=== PATIENT | female | born 1985 | race Caucasian/White ===

== ENCOUNTER 2024-09-29 20:07 | Emergency (ER) | payer OTHER, SELFPAY ==
[2024-09-29 20:07] VITALS: BMI 31.7
[2024-09-29 20:09] VITALS: BP 162/103
[2024-09-29 20:35] LABS: Hematocrit 41.5 % (37.0-47.0); Hemoglobin 14.2 g/dL (12.0-16.0); Mean Corp Hgb Conc. 34.2 g/dL (33.0-37.0); Mean Corpuscular Volume 91.8 fL (81.0-99.0); Nucleated Red Blood Cells % 0 %; Platelet Count 307 10^3/uL (130-400); Red Cell Dist. Width 12.1 % (11.5-14.5)
[2024-09-29 20:57] LABS: HCG, Serum Qualitative Screen Negative
[2024-09-29 21:01] LABS: ALT (SGPT) 25 U/L (0-35); AST (SGOT) 29 U/L (14-36); Albumin 4.7 g/dl (3.5-5.0); Alkaline Phosphatase 63 U/L (38-126); Blood Urea Nitrogen 7 mg/dl (7-17); Calcium 9.7 mg/dl (8.4-10.2); Carbon Dioxide 26 mmol/L (22-30); Chloride 104 mmol/L (98-107); Glucose 85 mg/dl (70-99); Potassium 4.5 mmol/L (3.5-5.1); Sodium 137 mmol/L (135-145); Total Protein 7.3 g/dl (6.3-8.2); eGFR > 60.00
[2024-09-29 23:14] VITALS: BP 139/84
[2024-09-29 23:18] VITALS: BP 139/84
--- NOTE | 2024-09-30 00:23 | ED.GENMED ---
History of Present Illness
<Viridiana Parks MD, Resident - Last Filed: 09/30/24 22:42>
General
Chief Complaint: Extremity Pain (non-traumatic)
Source: patient
Exam Limitations: none
Time Seen by Provider: 09/29/24 23:11
Nursing documentation reviewed up to this point in time: agreed with
History of Present Illness
History of Present Illness:
Ms. Conrad Matute is a 36-year-old female [facility] notable for a cat bite was presenting with increased pain at the left PIP joint of the index finger 1 month after a another cat bite there. She also reports increased bony growths at that joint.
Both cat bites at that joint or by her cat, which is fully vaccinated and exhibited no symptoms of rabies. 1 month ago after the cat bite, her left index finger was swollen and erythematous. She self medicated with amoxicillin 500 mg twice daily
for 5 to 7 days. Her finger healed. Her cat bit her at the same location before, a while ago.
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 Her last dose of tetanus vaccine was 8 to 10 years ago, she requests a tetanus booster.
She also 'broke out' diffusely on her neck and bilateral arms with bumps resembling acne. This has occurred before commonly with cosmetics and infections.
She denies lymphadenopathy, upper respiratory symptoms, fevers/chills, nausea/vomiting, and diarrhea.
Review of Systems
<Viridiana Parks MD, Resident - Last Filed: 09/30/24 22:42>
Review of Systems
All Other Systems: ROS reviewed and negative except as documented in HPI and ROS
Phy Exam
<Viridiana Parks MD, Resident - Last Filed: 09/30/24 22:42>
Physical Exam
Physical Exam:
Extremities: Left index finger PIP joint larger than right index finger PIP joint with bony nodes, full range of motion, slight tenderness to palpation
Heart regular rate and rhythm
Lungs clear to auscultation bilaterally
GI: Nontender to palpation, normal bowel sounds
Course
<Viridiana Parks MD, Resident - Last Filed: 09/30/24 22:42>
Orders/Labs/Results
Orders:
Orders
09/29/24 20:13
Test Result ONCE
09/29/24 20:18
CMP [Comprehensive Metabolic Panel] Urgent
Complete Blood Count/With Diff Urgent
HCG, Serum Qualitative Screen Urgent
09/30/24 00:13
CR Finger(s)/thumb Min 2 Vw Lt Urgent
Comment:
Reason For Exam: Cat bite 1 month ago at proximal joint; pain
09/30/24 00:22
Tetanus/Diphth/Acelpertussis [Adacel] 0.5 ml IM .ONCE ONE
Abnormal Lab Results
09/29/24
20:18
MCH 31.4 H pg
(27.0-31.0)
Absolute Neuts (auto) 6.6 H 10^3/uL
(1.4-6.5)
Absolute Monos (auto) 0.7 H 10^3/uL
(0.1-0.6)
09/29/24 20:18
09/29/24 20:18
Vital Signs
Initial and Last Documented VS:
Initial Vital Signs
Temp Pulse Resp BP Pulse Ox
98.6 F 114 18 162/103 97
09/29/24 20:09 09/29/24 20:09 09/29/24 20:09 09/29/24 20:09 09/29/24 20:09
Last Documented Vital Signs
Temp Pulse Resp BP Pulse Ox
98.6 F 68 18 140/78 100
09/29/24 20:09 09/30/24 01:59 09/30/24 01:59 09/30/24 01:59 09/30/24 01:59
<Linwood Villavicencio, - Last Filed: 09/30/24 01:34>
Orders/Labs/Results
Orders:
Orders
09/29/24 20:13
Test Result ONCE
09/29/24 20:18
CMP [Comprehensive Metabolic Panel] Urgent
Complete Blood Count/With Diff Urgent
HCG, Serum Qualitative Screen Urgent
09/30/24 00:13
CR Finger(s)/thumb Min 2 Vw Lt Urgent
Comment:
Reason For Exam: Cat bite 1 month ago at proximal joint; pain
09/30/24 00:22
Tetanus/Diphth/Acelpertussis [Adacel] 0.5 ml IM .ONCE ONE
Abnormal Lab Results
09/29/24
20:18
MCH 31.4 H pg
(27.0-31.0)
Absolute Neuts (auto) 6.6 H 10^3/uL
(1.4-6.5)
Absolute Monos (auto) 0.7 H 10^3/uL
(0.1-0.6)
09/29/24 20:18
09/29/24 20:18
Vital Signs
Initial and Last Documented VS:
Initial Vital Signs
Temp Pulse Resp BP Pulse Ox
98.6 F 114 18 162/103 97
09/29/24 20:09 09/29/24 20:09 09/29/24 20:09 09/29/24 20:09 09/29/24 20:09
Last Documented Vital Signs
Temp Pulse Resp BP Pulse Ox
98.6 F 68 18 140/78 100
09/29/24 20:09 09/30/24 01:59 09/30/24 01:59 09/30/24 01:59 09/30/24 01:59
<Viridiana Parks MD, Resident - Last Filed: 09/30/24 22:42>
MDM/Problems Addressed
Differential Diagnosis Includes:
Scarring around left index finger PIP joint after 2 Bites
Osteoarthritis
MDM/Problems Addressed:
Finger x-ray
Tdap vaccine booster
<Viridiana Parks MD, Resident - Last Filed: 09/30/24 22:42>
*Pulse Oximetry
SaO2: 99
Oxygen Mode of Delivery: Room air
<Linwood Villavicencio, DO - Last Filed: 09/30/24 01:34>
*Radiology
Radiology exam reviewed: radiology read reviewed (Left index finger x-ray no acute findings)
*Pulse Oximetry
Patient hypoxic: no
*Critical Care Note
Total Time (30-74mins, 75-104mins- exclusive of procedures): Not Applicable
<Linwood Villavicencio, DO - Last Filed: 09/30/24 01:34>
Patient Management
Social determinants of health affecting care: Living situation and Strong social support
Escalation/DeEscalation of care consider admission/obs:
Admit not indicated
ED Attending Note
<Viridiana Parks MD, Resident - Last Filed: 09/30/24 22:42>
-
Portions of this chart may have been created with voice recognition software.� Occasional wrong word or��sound alike� substitutions may have occurred due to the inherent limitations of voice recognition software.
<Linwood Villavicencio, DO - Last Filed: 09/30/24 01:34>
ED Attending Note
Patient seen and examined by attending physician: Yes
I performed a history and physical exam of patient and discussed management with resident, I reviewed resident's note and agree with documented findings and plan of care.: Yes
ED Attending Note:
I reviewed and agree with history and treatment plan by Viridiana Parks MD. my exam revealed 39-year-old female in no acute distress, possible scarring at PIP of left index finger. No signs of infection. Full range of motion. No x-ray findings.
Stable for discharge.
Discharge Plan
Departure
Patient Disposition: Home (Routine Discharge)
Date of Disposition: 09/30/24
Time of Disposition: 00:32
Patient with high blood pressure during this ER visit?: Yes
Condition: Good
Discharge Problem:
Cat bite, Finger injury
Instructions: Animal Bites (DC)
Activity Restrictions/Additional Instructions:
Dealam Martines, you came to the ED for increased pain in your left index finger after your cat bite 1 month ago. The increased size of the joint is likely due to scarring.
Please rest your finger if possible if the pain increases.
Please return if the finger develops signs of infection inflammation like discharge, discoloration, and warmth.
Interventions
Interventions:
*Risk Screen - Suicide Last Done: 09/29/24 20:09
*General Assessment Last Done: 09/30/24 01:58
*Neglect/Abuse Screening Last Done: 09/29/24 20:09
*ED- Fall Risk Assessment Last Done: 09/30/24 01:58
*ED COVID-19 Vaccine History Last Done: 09/30/24 01:58
*Nursing Disposition Last Done: 09/30/24 01:58
ED-Skin Assessment Last Done: 09/29/24 23:20
ED-Peripheral Vascular Assessment Last Done: 09/29/24 23:20
ED-Musculoskeletal Assessment Last Done: 09/29/24 23:20
Discharge Date and Time
Discharge Date/Time: 09/30/24 02:00
Print Language: [id number]
[2024-09-30] MEDS: ADACEL 0.5 ML IM (00:29)
[2024-09-30 01:59] VITALS: BP 140/78
== END 2024-09-30 02:00 | disposition home or self-care (01) ==
LOC: EMR 20:07
PROVIDERS: EMERGENCY PHYSICIAN Emergency Medicine; FAMILY PHYSICIAN Family Medicine
DX: S61.251A Open bite of left index finger without damage to nail, initial encounter (principal); W55.01XA Bitten by cat, initial encounter; Z23 Encounter for immunization
CPT/HCPCS: 99283; 90471; 73140; 80053; 84703; 85025; 90715